=== PATIENT | female | born 1985 | race Asian ===

== ENCOUNTER 2017-01-16 12:27 | Emergency (ER) | payer MEDICAID, OTHER ==
[~2017-01-16] VITALS: Ht 165.1 cm; Wt 80.0 kg
[~2017-01-16 12:27] MED LIST: CIPR-278 PO; DSS100 PO; METR500 PO; PANT40TA25 PO; RISP3 PO
[2017-01-16 13:18] VITALS: BP 115/80
== END 2017-01-16 14:37 | disposition home or self-care (01) ==
LOC: EMS 12:30
DX: S93.402A Sprain of unspecified ligament of left ankle, initial encounter (principal); F17.210 Nicotine dependence, cigarettes, uncomplicated; Z88.6 Allergy status to analgesic agent; Z88.5 Allergy status to narcotic agent; X58.XXXA Exposure to other specified factors, initial encounter; Y93.89 Activity, other specified; Y92.811 Bus as the place of occurrence of the external cause; Y99.8 Other external cause status
CPT/HCPCS: 99284

== ENCOUNTER 2017-08-07 16:51 | Inpatient (IN) | payer MEDICAID, OTHER ==
[~2017-08-07] VITALS: Ht 162.6 cm; Wt 68.4 kg
[2017-08-07] MEDS ORDERED: HYDR-3110 PO (17:20)
[2017-08-07] MEDS ORDERED: HALOPERIDOL 5 MG TABLET PO ONE (18:15)
[2017-08-07] MEDS ORDERED: LORazepam 2 MG TABLET PO ONE (18:15)
[2017-08-07 19:12] LABS: BASOPHILS % (AUTO) 0.7 % (0.0-2.0); EOSINOPHILS % (AUTO) 3.8 % (1.0-6.0); HEMOGLOBIN 14.6 g/dL (12.0-16.0); LYMPHOCYTES # (AUTO) 1.9 K/uL (1.0-4.8); LYMPHOCYTES % (AUTO) 24.2 % (22.0-44.0); MEAN CORPUSCULAR HEMOGLOBIN 30.9 pg (26.0-34.0); MEAN CORPUSCULAR VOLUME 91 fL (80-100); MONOCYTES # (AUTO) 0.4 K/uL (0.1-1.0); MONOCYTES % (AUTO) 5.4 % (2.0-9.0); NEUTROPHILS # (AUTO) 5.1 K/uL (1.8-7.7); NEUTROPHILS % (AUTO) 65.9 % (40.0-70.0); PLATELET COUNT (AUTO) 292 K/uL (150-450); RED BLOOD CELL COUNT(AUTO) 4.74 MIL/uL (4.00-5.20); RED CELL DISTRIBUTION WIDTH 12.7 % (11.5-14.5); WHITE BLOOD COUNT (AUTO) 7.8 K/uL (4.5-11.0)
[2017-08-07 19:21] LABS: ANION GAP 11 mmol/L (8-16); CALCIUM, TOTAL 9.3 mg/dL (8.8-10.5); CARBON DIOXIDE 23 mmol/L (22-29); CHLORIDE 104 mmol/L (98-107); CREATININE 0.73 mg/dL (0.60-1.30); GLOMERULAR FILTR. RATE CALC > 60 mL/min (>60); POTASSIUM 3.9 mmol/L (3.5-5.1); SODIUM SERUM 138 mmol/L (136-145); UREA NITROGEN, BLOOD 11 mg/dL (7-18)
[2017-08-07 19:27] LABS: ALANINE AMINOTRANSFERASE 26 U/L (12-78); ASPARTATE AMINOTRANSFERASE 15 U/L (15-37); BILIRUBIN,TOTAL 0.2 mg/dL (0.1-1.0); TOTAL PROTEIN, SERUM 8.4 g/dL (6.4-8.2)
[2017-08-07] MEDS: NICOTINE 14 MG/24 HOUR PATCH TD SCH (19:54)
[2017-08-07 20:08] VITALS: BP 147/81
[2017-08-07] MEDS: ZOLPIDEM TARTRATE 10 MG TABLET PO PRN (20:40)
[2017-08-07] MEDS ORDERED: INFLUENZA VIRUS VACCINE QVS 2017-18 (3YR+)/PF 60 MCG/0.5 ML SYRINGE IM ONE (21:30)
[2017-08-07 23:24] LABS: APPEARANCE,URINE TURBID (CLEAR); GLUCOSE, URINE (UA) NEGATIVE (NEGATIVE); KETONES,URINE NEGATIVE (NEGATIVE); LEUKOCYTE ESTERASE ,URINE NEGATIVE (NEGATIVE); OCCULT BLOOD,URINE NEGATIVE (NEGATIVE); PH,URINE 7.5 (5.0-8.0); PROTEIN,URINE NEGATIVE (NEGATIVE)
[2017-08-07 23:27] LABS: ADD UA MICROSCOPIC NO
[2017-08-08] MEDS: LORazepam 2 MG TABLET PO PRN ×3 (05:33→21:07)
[2017-08-08 05:48] VITALS: BP 115/83
[2017-08-08] MEDS: HALOPERIDOL 5 MG TABLET PO PRN (05:53)
[2017-08-08 07:06] LABS: CHOL/HDL RATIO 2.2 (3.9-5.7)
[2017-08-08] MEDS ORDERED: MAG HYDROX/AL HYDROX/SIMETH ES 30 ML SUSPENSION UDCUP PO PRN (07:30)
[2017-08-08] MEDS ORDERED: ONDANSETRON HCL 4 MG TABLET PO PRN (07:30)
[2017-08-08] MEDS ORDERED: BACITRACIN 28.4 GM OINTMENT TP PRN (07:30)
[2017-08-08] MEDS ORDERED: MAGNESIUM HYDROXIDE SUSPENSION 30 ML UDCUP PO PRN (07:30)
[2017-08-08] MEDS ORDERED: CloNIDine HCL 0.1 MG TABLET PO PRN (07:30)
[2017-08-08] MEDS ORDERED: PETROLATUM,WHITE 71 GM JELLY TP PRN (07:30)
[2017-08-08] MEDS ORDERED: LOPERAMIDE HCL 2 MG CAPSULE PO PRN (07:30)
[2017-08-08] MEDS ORDERED: ALBUTEROL SULFATE HFA 90 MCG/PUFF 8 GM INHALER IH PRN (07:30)
[2017-08-08] MEDS ORDERED: BENZOCAINE/MENTHOL LOZENGE [8 LOZENGES/PACKET] MM PRN (07:45)
[2017-08-08] MEDS: DiphenhydrAMINE HCL 25 MG CAPSULE PO PRN (08:53)
[2017-08-08] MEDS: NICOTINE 14 MG/24 HOUR PATCH TD SCH (08:56)
[2017-08-08 10:07] VITALS: BP 126/74
[2017-08-08] MEDS: NICOTINE 21 MG/24 HOUR PATCH TD SCH (11:33)
[2017-08-08] MEDS: HALOPERIDOL 5 MG TABLET PO SCH ×2 (11:33→20:56)
[2017-08-08 17:40] VITALS: BP 117/71
[2017-08-09] MEDS: LORazepam 2 MG TABLET PO PRN ×2 (07:12→14:27)
[2017-08-09 08:05] VITALS: BP 122/71
[2017-08-09] MEDS: HALOPERIDOL 5 MG TABLET PO SCH ×2 (09:11→21:02)
[2017-08-09] MEDS: NICOTINE 21 MG/24 HOUR PATCH TD SCH (09:13)
[2017-08-09] MEDS: DiphenhydrAMINE HCL 25 MG CAPSULE PO PRN (11:05)
[2017-08-09] MEDS: HALOPERIDOL 5 MG TABLET PO PRN (14:28)
[2017-08-09 16:24] VITALS: BP 121/86
[2017-08-09] MEDS: ZOLPIDEM TARTRATE 10 MG TABLET PO PRN (21:02)
[2017-08-10] MEDS: LORazepam 2 MG TABLET PO PRN ×3 (06:24→16:11)
[2017-08-10 06:26] VITALS: BP 112/83
[2017-08-10] MEDS: DiphenhydrAMINE HCL 25 MG CAPSULE PO PRN (07:48)
[2017-08-10] MEDS: HALOPERIDOL 5 MG TABLET PO PRN ×2 (07:49→16:11)
[2017-08-10 08:00] VITALS: BP 118/73
[2017-08-10] MEDS: HALOPERIDOL 5 MG TABLET PO SCH ×2 (10:00→21:00)
[2017-08-10] MEDS: NICOTINE 21 MG/24 HOUR PATCH TD SCH (10:02)
[2017-08-10 16:15] VITALS: BP 135/82
[2017-08-10] MEDS: ACETAMINOPHEN 325 MG TABLET PO PRN (16:54)
[2017-08-10 17:00] VITALS: BP 132/68
[2017-08-11] MEDS: HALOPERIDOL 5 MG TABLET PO PRN ×2 (04:27→12:41)
[2017-08-11] MEDS: LORazepam 2 MG TABLET PO PRN ×3 (04:28→19:23)
[2017-08-11 04:31] VITALS: BP 118/80
[2017-08-11] MEDS: HALOPERIDOL 5 MG TABLET PO SCH ×3 (09:12→21:10)
[2017-08-11] MEDS: NICOTINE 21 MG/24 HOUR PATCH TD SCH (09:13)
[2017-08-11 09:29] VITALS: BP 109/72
[2017-08-11] MEDS: DiphenhydrAMINE HCL 25 MG CAPSULE PO PRN (15:15)
[2017-08-11] MEDS: ACETAMINOPHEN 325 MG TABLET PO PRN (16:00)
[2017-08-11 16:03] VITALS: BP 112/73
[2017-08-12 00:15] VITALS: BP 114/73
[2017-08-12] MEDS: ZOLPIDEM TARTRATE 10 MG TABLET PO PRN ×2 (00:16→22:11)
[2017-08-12] MEDS: LORazepam 2 MG TABLET PO PRN ×3 (07:00→15:37)
[2017-08-12 08:52] VITALS: BP 126/84
[2017-08-12] MEDS: NICOTINE 21 MG/24 HOUR PATCH TD SCH (08:59)
[2017-08-12] MEDS: HALOPERIDOL 5 MG TABLET PO SCH (08:59)
[2017-08-12] MEDS: HALOPERIDOL 5 MG TABLET PO PRN (16:48)
[2017-08-12] MEDS: HALOPERIDOL 10 MG TABLET PO SCH (20:01)
[2017-08-12 21:38] VITALS: BP 112/78
[2017-08-13 08:05] VITALS: BP 118/78
[2017-08-13] MEDS: HALOPERIDOL 10 MG TABLET PO SCH ×2 (08:11→22:38)
[2017-08-13] MEDS: LORazepam 2 MG TABLET PO PRN ×2 (08:12→15:01)
[2017-08-13] MEDS: NICOTINE 21 MG/24 HOUR PATCH TD SCH (08:13)
[2017-08-13] MEDS: DiphenhydrAMINE HCL 25 MG CAPSULE PO PRN ×2 (08:13→16:34)
[2017-08-13 12:05] LABS: ANION GAP 6 mmol/L (8-16); CALCIUM, TOTAL 8.9 mg/dL (8.8-10.5); CARBON DIOXIDE 30 mmol/L (22-29); CHLORIDE 103 mmol/L (98-107); CREATININE 0.71 mg/dL (0.60-1.30); GLOMERULAR FILTR. RATE CALC > 60 mL/min (>60); POTASSIUM 4.2 mmol/L (3.5-5.1); SODIUM SERUM 139 mmol/L (136-145); UREA NITROGEN, BLOOD 8 mg/dL (7-18)
[2017-08-13 12:07] LABS: HEMOGLOBIN A1C 5.6 % (4.5-6.2)
[2017-08-13] MEDS: HALOPERIDOL 5 MG TABLET PO PRN (16:12)
[2017-08-13 16:38] VITALS: BP 107/60
[2017-08-13] MEDS: BENZTROPINE MESYLATE 1 MG TABLET PO SCH (22:38)
[2017-08-14 08:35] VITALS: BP 104/74
[2017-08-14] MEDS: HALOPERIDOL 10 MG TABLET PO SCH ×2 (08:52→20:08)
[2017-08-14] MEDS: NICOTINE 21 MG/24 HOUR PATCH TD SCH (08:52)
[2017-08-14] MEDS: BENZTROPINE MESYLATE 1 MG TABLET PO SCH ×2 (08:52→20:08)
[2017-08-14] MEDS: LORazepam 2 MG TABLET PO PRN (12:40)
[2017-08-14 16:37] VITALS: BP 108/71
[2017-08-14] MEDS: ACETAMINOPHEN 325 MG TABLET PO PRN (16:37)
[2017-08-14 16:42] VITALS: BP 108/71
[2017-08-14 19:52] VITALS: BP 100/66
[2017-08-14] MEDS: IBUPROFEN 600 MG TABLET PO PRN (19:52)
[2017-08-14] MEDS: ZOLPIDEM TARTRATE 10 MG TABLET PO PRN (20:08)
[2017-08-14 20:52] VITALS: BP 111/72
[2017-08-15 04:25] VITALS: BP 112/70
[2017-08-15 05:30] VITALS: BP 112/70
[2017-08-15] MEDS: IBUPROFEN 600 MG TABLET PO PRN (05:35)
[2017-08-15] MEDS: LORazepam 2 MG TABLET PO PRN (08:27)
[2017-08-15] MEDS: BENZTROPINE MESYLATE 1 MG TABLET PO SCH (08:28)
[2017-08-15] MEDS: HALOPERIDOL 10 MG TABLET PO SCH (08:28)
[2017-08-15] MEDS: NICOTINE 21 MG/24 HOUR PATCH TD SCH (08:31)
[2017-08-15] MEDS: DiphenhydrAMINE HCL 25 MG CAPSULE PO PRN (09:10)
[2017-08-15] MEDS ORDERED: HALO10 PO (10:27)
[2017-08-15] MEDS ORDERED: BENZ1TAB10 PO (10:27)
[2017-08-15 12:19] LABS: APPEARANCE,URINE CLEAR (CLEAR); GLUCOSE, URINE (UA) NEGATIVE (NEGATIVE); KETONES,URINE NEGATIVE (NEGATIVE); LEUKOCYTE ESTERASE ,URINE NEGATIVE (NEGATIVE); OCCULT BLOOD,URINE NEGATIVE (NEGATIVE); PROTEIN,URINE NEGATIVE (NEGATIVE)
[2017-08-15 12:31] LABS: ADD UA MICROSCOPIC NO
[2017-08-15 13:03] VITALS: BP 124/78
== END 2017-08-15 14:30 | disposition home or self-care (01) | DRG 750 ==
LOC: EMS 16:54 → MERGE 18:25 → 3EI 18:25
PROC: 3E0234Z Introduction of Serum, Toxoid and Vaccine into Muscle, Percutaneous Approach (ICD-10-PCS; principal; 2017-08-09)
DX: F20.0 Paranoid schizophrenia (principal); R56.9 Unspecified convulsions; R45.851 Suicidal ideations; F17.200 Nicotine dependence, unspecified, uncomplicated; Z23 Encounter for immunization; G47.00 Insomnia, unspecified; K59.00 Constipation, unspecified; N80.9 Endometriosis, unspecified; N83.209 Unspecified ovarian cyst, unspecified side; N94.6 Dysmenorrhea, unspecified; Z91.5 Personal history of self-harm; R45.87 Impulsiveness; Z71.6 Tobacco abuse counseling; Z56.0 Unemployment, unspecified
CPT/HCPCS: 80307; 81025; 83036; 87081; 90471; 99285

== ENCOUNTER 2017-08-16 20:55 | Emergency (ER) | payer OTHER ==
[~2017-08-16] VITALS: Ht 162.6 cm; Wt 69.1 kg
[~2017-08-16 20:55] MED LIST changes: +BENZ1TAB10 PO; -CIPR-278 PO; -DSS100 PO; +HALO10 PO; -METR500 PO; -PANT40TA25 PO; -RISP3 PO
[2017-08-16] MEDS ORDERED: LORazepam 2 MG TABLET PO ONE (21:30)
[2017-08-16] MEDS ORDERED: HALOPERIDOL 5 MG TABLET PO ONE (21:30)
[2017-08-16 21:47] LABS: ANION GAP 10 mmol/L (8-16); CALCIUM, TOTAL 9.3 mg/dL (8.8-10.5); CARBON DIOXIDE 25 mmol/L (22-29); CHLORIDE 103 mmol/L (98-107); CREATININE 0.75 mg/dL (0.60-1.30); GLOMERULAR FILTR. RATE CALC > 60 mL/min (>60); POTASSIUM 4.1 mmol/L (3.5-5.1); SODIUM SERUM 138 mmol/L (136-145); UREA NITROGEN, BLOOD 12 mg/dL (7-18)
[2017-08-16 21:53] LABS: ALANINE AMINOTRANSFERASE 19 U/L (12-78); ALBUMIN 3.8 g/dL (3.4-5.0); ASPARTATE AMINOTRANSFERASE 14 U/L (15-37); BILIRUBIN,TOTAL 0.1 mg/dL (0.1-1.0); TOTAL PROTEIN, SERUM 7.8 g/dL (6.4-8.2)
[2017-08-16 21:56] LABS: BASOPHILS % (AUTO) 0.6 % (0.0-2.0); HEMOGLOBIN 13.9 g/dL (12.0-16.0); LYMPHOCYTES # (AUTO) 1.9 K/uL (1.0-4.8); LYMPHOCYTES % (AUTO) 23.3 % (22.0-44.0); MEAN CORPUSCULAR HEMOGLOBIN 31.3 pg (26.0-34.0); MEAN CORPUSCULAR HGB CONC 34.7 G/dL (31.0-37.0); MEAN CORPUSCULAR VOLUME 90 fL (80-100); MONOCYTES # (AUTO) 0.4 K/uL (0.1-1.0); MONOCYTES % (AUTO) 5.2 % (2.0-9.0); NEUTROPHILS # (AUTO) 5.3 K/uL (1.8-7.7); NEUTROPHILS % (AUTO) 65.9 % (40.0-70.0); PLATELET COUNT (AUTO) 244 K/uL (150-450); RED BLOOD CELL COUNT(AUTO) 4.43 MIL/uL (4.00-5.20); RED CELL DISTRIBUTION WIDTH 12.4 % (11.5-14.5)
[2017-08-17] VITALS: BP 119/75
== END 2017-08-17 00:08 | disposition home or self-care (01) ==
LOC: EMS 20:57
DX: F25.9 Schizoaffective disorder, unspecified (principal); F31.9 Bipolar disorder, unspecified; F17.210 Nicotine dependence, cigarettes, uncomplicated; Z88.5 Allergy status to narcotic agent; Z88.8 Allergy status to other drugs, medicaments and biological substances
CPT/HCPCS: 36415; 80053; 80307; 84703; 85025; 99285; G0480

== ENCOUNTER 2018-07-08 13:35 | Emergency (ER) | payer MEDICAID, OTHER ==
[~2018-07-08] VITALS: Ht 160 cm; Wt 75.0 kg
[~2018-07-08 13:35] MED LIST changes: -BENZ1TAB10 PO; +CIPR-278 PO; -HALO10 PO; +OLAN10TA3 PO
[2018-07-08 13:37] VITALS: BP 117/79
[2018-07-08] MEDS ORDERED: CLIN300C3 PO (14:00)
[2018-07-08] MEDS ORDERED: ARIP5TAB8 PO (14:00)
[2018-07-08] MEDS ORDERED: IBUP-2071 PO (14:00)
[2018-07-08] MEDS ORDERED: HYDR-4031 PO (14:00)
[2018-07-08] MEDS ORDERED: OLAN5TAB2 PO (14:00)
[2018-07-08 14:21] LABS: EOSINOPHILS % (AUTO) 6.7 % (1.0-6.0); HEMATOCRIT 40.7 % (36-46); HEMOGLOBIN 14.2 g/dL (12.0-16.0); LYMPHOCYTES # (AUTO) 1.5 K/uL (1.0-4.8); LYMPHOCYTES % (AUTO) 25.1 % (22.0-44.0); MEAN CORPUSCULAR HEMOGLOBIN 30.5 pg (26.0-34.0); MEAN CORPUSCULAR HGB CONC 34.8 G/dL (31.0-37.0); MEAN CORPUSCULAR VOLUME 88 fL (80-100); MONOCYTES # (AUTO) 0.3 K/uL (0.1-1.0); MONOCYTES % (AUTO) 5.1 % (2.0-9.0); NEUTROPHILS # (AUTO) 3.7 K/uL (1.8-7.7); NEUTROPHILS % (AUTO) 62.1 % (40.0-70.0); PLATELET COUNT (AUTO) 261 K/uL (150-450); RED BLOOD CELL COUNT(AUTO) 4.64 MIL/uL (4.00-5.20)
[2018-07-08 14:27] LABS: ANION GAP 11 mmol/L (8-16); CALCIUM, TOTAL 9.1 mg/dL (8.8-10.5); CARBON DIOXIDE 23 mmol/L (22-29); CHLORIDE 106 mmol/L (98-107); CREATININE 0.77 mg/dL (0.60-1.30); GLOMERULAR FILTR. RATE CALC > 60 mL/min (>60); GLUCOSE,RANDOM 104 mg/dL (70-110); POTASSIUM 3.7 mmol/L (3.5-5.1); SODIUM SERUM 140 mmol/L (136-145); UREA NITROGEN, BLOOD 11 mg/dL (7-18)
[2018-07-08] MEDS ORDERED: LORazepam 2 MG/ML VIAL IM ONE (14:30)
[2018-07-08] MEDS ORDERED: HALOPERIDOL LACTATE 5 MG/ML VIAL IM ONE (14:30)
[2018-07-08 14:33] LABS: ALANINE AMINOTRANSFERASE 59 U/L (12-78); ALBUMIN 3.6 g/dL (3.4-5.0); ALKALINE PHOSPHATASE 90 U/L (46-116); ASPARTATE AMINOTRANSFERASE 24 U/L (15-37); BILIRUBIN,TOTAL 0.2 mg/dL (0.1-1.0); TOTAL PROTEIN, SERUM 7.6 g/dL (6.4-8.2)
[2018-07-08 15:30] LABS: AMPHET/METH SCREEN,URINE NEGATIVE (NEGATIVE); BARBITURATE SCREEN, URINE NEGATIVE (NEGATIVE); BENZODIAZEPINES SCREEN,URINE NEGATIVE (NEGATIVE); CANNABINOID SCREEN,URINE NEGATIVE (NEGATIVE); COCAINE SCREEN,URINE NEGATIVE (NEGATIVE); METHADONE SCREEN, URINE NEGATIVE (NEGATIVE); OPIATE SCREEN,URINE NEGATIVE (NEGATIVE); PHENCYCLIDINE SCREEN,URINE NEGATIVE (NEGATIVE)
== END 2018-07-08 16:17 | disposition home or self-care (01) ==
LOC: EMS 13:36
DX: F20.0 Paranoid schizophrenia (principal); F41.9 Anxiety disorder, unspecified; L27.2 Dermatitis due to ingested food; R45.851 Suicidal ideations; F31.9 Bipolar disorder, unspecified; N80.9 Endometriosis, unspecified; F11.20 Opioid dependence, uncomplicated; F17.210 Nicotine dependence, cigarettes, uncomplicated; Z86.718 Personal history of other venous thrombosis and embolism; Z88.6 Allergy status to analgesic agent; Z79.899 Other long term (current) drug therapy; Z98.890 Other specified postprocedural states; Z71.6 Tobacco abuse counseling
CPT/HCPCS: 36415; 80053; 80307; 84703; 85025; 96372; 99284; 99406; G0480; J1630; J2060

== ENCOUNTER 2022-01-18 16:23 | Emergency (ER) | payer MEDICAID, OTHER ==
[~2022-01-18] VITALS: Ht 165.1 cm; Wt 77.3 kg
[~2022-01-18 16:23] MED LIST changes: +ARIP5TAB37 PO; -CIPR-278 PO; +CLIN300C3 PO; +HYDR-4808 PO; +IBUP-2071 PO; -OLAN10TA3 PO; +OLAN5TAB52 PO
[2022-01-18] MEDS ORDERED: LORazepam 1 MG TABLET PO ONE (19:00)
[2022-01-18 19:30] VITALS: BP 115/84
== END 2022-01-18 20:00 | disposition home or self-care (01) ==
LOC: EMS 16:25
DX: R45.851 Suicidal ideations (principal); F41.9 Anxiety disorder, unspecified; F31.9 Bipolar disorder, unspecified; F17.210 Nicotine dependence, cigarettes, uncomplicated; Z88.5 Allergy status to narcotic agent; Z88.6 Allergy status to analgesic agent
CPT/HCPCS: 99284; Z7502; Z7610

== ENCOUNTER 2022-02-27 16:46 | Emergency (ER) | payer OTHER ==
[~2022-02-27] VITALS: Ht 165.1 cm; Wt 78.2 kg
[~2022-02-27 16:46] MED LIST changes: -CLIN300C3 PO; +CLIN300C58 PO
[2022-02-27 18:07] LABS: BASOPHILS % (AUTO) 0.9 % (0.0-2.0); EOSINOPHILS % (AUTO) 1.2 % (1.0-6.0); HEMATOCRIT 40.9 % (36-46); HEMOGLOBIN 13.8 g/dL (12.0-16.0); LYMPHOCYTES % (AUTO) 31.5 % (22.0-44.0); MEAN CORPUSCULAR HGB CONC 33.7 G/dL (31.0-37.0); MEAN CORPUSCULAR VOLUME 86 fL (80-100); MONOCYTES # (AUTO) 0.3 K/uL (0.1-1.0); MONOCYTES % (AUTO) 4.4 % (2.0-9.0); PLATELET COUNT (AUTO) 259 K/uL (150-450); RED BLOOD CELL COUNT(AUTO) 4.77 MIL/uL (4.00-5.20)
[2022-02-27 18:14] VITALS: BP 123/74
[2022-02-27 18:17] LABS: ANION GAP 13 mmol/L (8-16); CALCIUM, TOTAL 9.3 mg/dL (8.8-10.5); CARBON DIOXIDE 23 mmol/L (22-29); CHLORIDE 107 mmol/L (98-107); CREATININE 0.98 mg/dL (0.60-1.30); GLOMERULAR FILTR. RATE CALC > 60 mL/min (>60); GLUCOSE,RANDOM 92 mg/dL (70-110); POTASSIUM 3.4 mmol/L (3.5-5.1); SODIUM SERUM 143 mmol/L (136-145); UREA NITROGEN, BLOOD 13 mg/dL (7-18)
[2022-02-27] MEDS ORDERED: [UNRECOGNIZED DRUG - CODE] PO (18:21)
[2022-02-27] MEDS ORDERED: CLOZ100T32 PO (18:21)
[2022-02-27] MEDS ORDERED: TOPI25 PO (18:21)
[2022-02-27 18:23] LABS: ALANINE AMINOTRANSFERASE 22 U/L (12-78); ALBUMIN 3.9 g/dL (3.4-5.0); ALKALINE PHOSPHATASE 117 U/L (46-116); ASPARTATE AMINOTRANSFERASE 19 U/L (15-37); BILIRUBIN,TOTAL 0.3 mg/dL (0.1-1.0); TOTAL PROTEIN, SERUM 8.1 g/dL (6.4-8.2)
[2022-02-27] MEDS ORDERED: LORazepam 1 MG TABLET PO ONE (19:00)
[2022-02-27 19:15] LABS: AMPHET/METH SCREEN,URINE NEGATIVE (NEGATIVE); BARBITURATE SCREEN, URINE NEGATIVE (NEGATIVE); BENZODIAZEPINES SCREEN,URINE NEGATIVE (NEGATIVE); CANNABINOID SCREEN,URINE NEGATIVE (NEGATIVE); COCAINE SCREEN,URINE NEGATIVE (NEGATIVE); METHADONE SCREEN, URINE NEGATIVE (NEGATIVE); OPIATE SCREEN,URINE NEGATIVE (NEGATIVE)
[2022-02-27 19:16] LABS: PHENCYCLIDINE SCREEN,URINE NEGATIVE (NEGATIVE)
[2022-02-27 20:09] LABS: COVID AG,FIA SOURCE NASOPHARYNGEAL
[2022-02-27] MEDS ORDERED: CloZAPine 100 MG TABLET PO ONE (20:30)
== END 2022-02-27 21:04 | disposition home or self-care (01) ==
LOC: EMS 16:52
DX: F31.9 Bipolar disorder, unspecified (principal); F41.9 Anxiety disorder, unspecified; N80.9 Endometriosis, unspecified; F11.20 Opioid dependence, uncomplicated; F17.210 Nicotine dependence, cigarettes, uncomplicated; Z87.42 Personal history of other diseases of the female genital tract; Z98.890 Other specified postprocedural states; Z88.8 Allergy status to other drugs, medicaments and biological substances; Z20.822 Contact with and (suspected) exposure to COVID-19
CPT/HCPCS: 36415; 80053; 80307; 85025; 87426; 99285; G0480

== ENCOUNTER 2022-03-05 15:01 | Inpatient (IN) | payer MEDICAID, OTHER ==
[~2022-03-05] VITALS: Ht 165.1 cm; Wt 72.0 kg
[~2022-03-05 15:01] MED LIST changes: +CHOL200059 PO; -CLIN300C58 PO; +CLOZ100T32 PO; +TOPI25 PO
[2022-03-05] MEDS ORDERED: QUEtiapine FUMARATE 100 MG TABLET PO PRN (17:30)
[2022-03-05 17:42] LABS: BASOPHILS % (AUTO) 0.9 % (0.0-2.0); EOSINOPHILS % (AUTO) 1.3 % (1.0-6.0); HEMATOCRIT 40.8 % (36-46); HEMOGLOBIN 13.9 g/dL (12.0-16.0); LYMPHOCYTES # (AUTO) 2.1 K/uL (1.0-4.8); MEAN CORPUSCULAR HEMOGLOBIN 29.3 pg (26.0-34.0); MEAN CORPUSCULAR VOLUME 86 fL (80-100); MONOCYTES # (AUTO) 0.3 K/uL (0.1-1.0); MONOCYTES % (AUTO) 3.6 % (2.0-9.0); NEUTROPHILS # (AUTO) 5.5 K/uL (1.8-7.7); NEUTROPHILS % (AUTO) 68.2 % (40.0-70.0); PLATELET COUNT (AUTO) 257 K/uL (150-450); RED BLOOD CELL COUNT(AUTO) 4.74 MIL/uL (4.00-5.20); RED CELL DISTRIBUTION WIDTH 13.5 % (11.5-14.5)
[2022-03-05] MEDS ORDERED: LORazepam 2 MG TABLET PO ONE (17:45)
[2022-03-05] MEDS ORDERED: OLANZapine 5 MG TABLET PO ONE (17:45)
[2022-03-05 17:51] LABS: ANION GAP 9 mmol/L (8-16); CALCIUM, TOTAL 9.4 mg/dL (8.8-10.5); CARBON DIOXIDE 25 mmol/L (22-29); CHLORIDE 108 mmol/L (98-107); CREATININE 0.99 mg/dL (0.60-1.30); GLOMERULAR FILTR. RATE CALC > 60 mL/min (>60); GLUCOSE,RANDOM 113 mg/dL (70-110); POTASSIUM 3.3 mmol/L (3.5-5.1); SODIUM SERUM 142 mmol/L (136-145); UREA NITROGEN, BLOOD 11 mg/dL (7-18)
[2022-03-05 17:53] LABS: COVID AG,FIA SOURCE NASAL SWAB
[2022-03-05 17:55] LABS: APPEARANCE,URINE TURBID (CLEAR); BILIRUBIN,URINE NEGATIVE (NEGATIVE); GLUCOSE, URINE (UA) NEGATIVE (NEGATIVE); KETONES,URINE NEGATIVE (NEGATIVE); LEUKOCYTE ESTERASE ,URINE NEGATIVE (NEGATIVE); NITRATE,URINE NEGATIVE (NEGATIVE); OCCULT BLOOD,URINE NEGATIVE (NEGATIVE); PH,URINE 7.5 (5.0-8.0); PROTEIN,URINE NEGATIVE (NEGATIVE); SPECIFIC GRAVITIY, URINE 1.013 (1.003-1.030); UROBILINOGEN,URINE <=1.0 mg/dL (<=1.0)
[2022-03-05 18:01] LABS: AMPHET/METH SCREEN,URINE NEGATIVE (NEGATIVE); BARBITURATE SCREEN, URINE NEGATIVE (NEGATIVE); BENZODIAZEPINES SCREEN,URINE NEGATIVE (NEGATIVE); CANNABINOID SCREEN,URINE NEGATIVE (NEGATIVE); COCAINE SCREEN,URINE NEGATIVE (NEGATIVE); METHADONE SCREEN, URINE NEGATIVE (NEGATIVE); OPIATE SCREEN,URINE NEGATIVE (NEGATIVE)
[2022-03-05 18:02] LABS: ALANINE AMINOTRANSFERASE 21 U/L (12-78); ALKALINE PHOSPHATASE 113 U/L (46-116); ASPARTATE AMINOTRANSFERASE 14 U/L (15-37); BILIRUBIN,TOTAL 0.3 mg/dL (0.1-1.0); HCG,QUANTITATIVE < 1 mIU/mL (0-6); TOTAL PROTEIN, SERUM 8.4 g/dL (6.4-8.2)
[2022-03-05 18:02] LABS: PHENCYCLIDINE SCREEN,URINE NEGATIVE (NEGATIVE)
[2022-03-05] MEDS ORDERED: POTASSIUM CHLORIDE 20 MEQ ER TABLET PO ONE (18:15)
[2022-03-05] MEDS: LORazepam 2 MG TABLET PO PRN (19:51)
[2022-03-06] MEDS: LORazepam 2 MG TABLET PO PRN ×2 (11:15→16:51)
[2022-03-06 11:30] VITALS: BP 110/81
[2022-03-06 16:26] VITALS: BP 114/80
[2022-03-06] MEDS: NICOTINE 21 MG/24 HOUR PATCH TD SCH (16:57)
[2022-03-06] MEDS: CloZAPine 100 MG TABLET PO SCH (20:29)
[2022-03-07 00:22] VITALS: BP 116/82
[2022-03-07] MEDS: ZOLPIDEM TARTRATE 10 MG TABLET PO PRN (01:16)
[2022-03-07 07:57] LABS: HEMOGLOBIN A1C 5.5 % (3.8-5.6)
[2022-03-07 08:06] LABS: CHOL/HDL RATIO 2.5 (3.9-5.7); FREE T4 (FREE THYROXINE) 1.19 ng/dL (0.76-1.46); THYROID STIMULATING HORMONE 1.01 uIU/mL (0.36-3.74)
[2022-03-07 08:23] VITALS: BP 107/70
[2022-03-07] MEDS: CHOLECALCIFEROL (VIT D3) 1,000 UNITS [25 MCG] TABLET PO SCH (09:23)
[2022-03-07] MEDS: TOPIRAMATE 25 MG TABLET PO SCH (09:23)
[2022-03-07] MEDS: NICOTINE 21 MG/24 HOUR PATCH TD SCH (09:23)
[2022-03-07] MEDS: ESCITALOPRAM OXALATE 10 MG TABLET PO SCH (09:27)
[2022-03-07] MEDS: LORazepam 2 MG TABLET PO PRN ×2 (11:37→19:59)
[2022-03-07] MEDS ORDERED: ACETAMINOPHEN 325 MG TABLET PO PRN (13:15)
[2022-03-07 16:19] VITALS: BP 117/85
[2022-03-07] MEDS ORDERED: ONDANSETRON HCL 4 MG TABLET PO PRN (18:45)
[2022-03-07] MEDS: CloZAPine 100 MG TABLET PO SCH (20:28)
[2022-03-08 07:17] LABS: POTASSIUM 4.4 mmol/L (3.5-5.1)
[2022-03-08 08:12] VITALS: BP 118/61
[2022-03-08] MEDS: TOPIRAMATE 25 MG TABLET PO SCH (09:26)
[2022-03-08] MEDS: CHOLECALCIFEROL (VIT D3) 1,000 UNITS [25 MCG] TABLET PO SCH (09:28)
[2022-03-08] MEDS: ESCITALOPRAM OXALATE 10 MG TABLET PO SCH (09:28)
[2022-03-08] MEDS: NICOTINE 21 MG/24 HOUR PATCH TD SCH (09:29)
[2022-03-08] MEDS: LORazepam 2 MG TABLET PO PRN ×2 (09:47→19:06)
[2022-03-08 16:03] VITALS: BP 111/67
[2022-03-08] MEDS: CloZAPine 100 MG TABLET PO SCH (20:07)
[2022-03-09 02:09] VITALS: BP 113/65
[2022-03-09] MEDS: TOPIRAMATE 25 MG TABLET PO SCH (09:05)
[2022-03-09] MEDS: ESCITALOPRAM OXALATE 10 MG TABLET PO SCH (09:05)
[2022-03-09] MEDS: NICOTINE 21 MG/24 HOUR PATCH TD SCH (09:05)
[2022-03-09] MEDS: CHOLECALCIFEROL (VIT D3) 1,000 UNITS [25 MCG] TABLET PO SCH (09:06)
[2022-03-09 09:27] VITALS: BP 106/84
[2022-03-09] MEDS: LORazepam 2 MG TABLET PO PRN (12:10)
[2022-03-09 16:16] VITALS: BP 102/67
[2022-03-09] MEDS: CloZAPine 100 MG TABLET PO SCH (20:33)
[2022-03-09] MEDS: ZOLPIDEM TARTRATE 10 MG TABLET PO PRN (22:57)
[2022-03-10 01:45] VITALS: BP 106/70
[2022-03-10 09:00] VITALS: BP 98/60
[2022-03-10] MEDS: ESCITALOPRAM OXALATE 10 MG TABLET PO SCH (09:02)
[2022-03-10] MEDS: NICOTINE 21 MG/24 HOUR PATCH TD SCH (09:02)
[2022-03-10] MEDS: CHOLECALCIFEROL (VIT D3) 1,000 UNITS [25 MCG] TABLET PO SCH (09:02)
[2022-03-10] MEDS: TOPIRAMATE 25 MG TABLET PO SCH (09:02)
[2022-03-10] MEDS ORDERED: CLOZ100T32 PO (13:52)
[2022-03-10] MEDS ORDERED: ESCI10 PO (13:52)
[2022-03-10] MEDS ORDERED: TOPI25 PO (13:52)
[2022-03-10] MEDS: LORazepam 2 MG TABLET PO PRN (14:04)
[2022-03-10 16:10] VITALS: BP 119/68
== END 2022-03-10 16:15 | disposition home or self-care (01) | DRG 750 ==
LOC: EMS 15:04 → B2S 03-06 05:42
PROVIDERS: ADMIT Psychiatry & Neurology Psychiatry; ATTEND Psychiatry & Neurology Psychiatry
DX: F25.1 Schizoaffective disorder, depressive type (principal); R45.850 Homicidal ideations; E55.9 Vitamin D deficiency, unspecified; Z20.822 Contact with and (suspected) exposure to COVID-19; E87.6 Hypokalemia; F11.20 Opioid dependence, uncomplicated; F17.200 Nicotine dependence, unspecified, uncomplicated; F31.9 Bipolar disorder, unspecified; F41.9 Anxiety disorder, unspecified; Z79.899 Other long term (current) drug therapy; Z71.6 Tobacco abuse counseling; Z91.51 Personal history of suicidal behavior; Z91.52 Personal history of nonsuicidal self-harm
CPT/HCPCS: 80053; 80061; 81003; 83036; 84132; 84439; 84443; 84702; 85025; 99285; G0480

== ENCOUNTER 2022-03-25 20:26 | Inpatient (IN) | payer MEDICAID, OTHER ==
[~2022-03-25] VITALS: Ht 165.1 cm; Wt 78.0 kg
[~2022-03-25 20:26] MED LIST changes: -ARIP5TAB37 PO; -CHOL200059 PO; +ESCI10 PO; -HYDR-4808 PO; -IBUP-2071 PO; -OLAN5TAB52 PO
[2022-03-25 22:47] LABS: BASOPHILS % (AUTO) 0.9 % (0.0-2.0); EOSINOPHILS % (AUTO) 2.2 % (1.0-6.0); HEMATOCRIT 43.3 % (36-46); HEMOGLOBIN 14.6 g/dL (12.0-16.0); LYMPHOCYTES # (AUTO) 2.5 K/uL (1.0-4.8); LYMPHOCYTES % (AUTO) 39.5 % (22.0-44.0); MEAN CORPUSCULAR HEMOGLOBIN 29.2 pg (26.0-34.0); MEAN CORPUSCULAR HGB CONC 33.7 G/dL (31.0-37.0); MEAN CORPUSCULAR VOLUME 87 fL (80-100); MONOCYTES # (AUTO) 0.3 K/uL (0.1-1.0); MONOCYTES % (AUTO) 4.7 % (2.0-9.0); NEUTROPHILS # (AUTO) 3.3 K/uL (1.8-7.7); NEUTROPHILS % (AUTO) 52.7 % (40.0-70.0); PLATELET COUNT (AUTO) 254 K/uL (150-450); RED CELL DISTRIBUTION WIDTH 13.1 % (11.5-14.5)
[2022-03-25 23:07] LABS: ANION GAP 11 mmol/L (8-16); CALCIUM, TOTAL 8.7 mg/dL (8.8-10.5); CARBON DIOXIDE 20 mmol/L (22-29); CHLORIDE 106 mmol/L (98-107); CREATININE 0.91 mg/dL (0.60-1.30); GLOMERULAR FILTR. RATE CALC > 60 mL/min (>60); GLUCOSE,RANDOM 89 mg/dL (70-110); POTASSIUM 3.5 mmol/L (3.5-5.1); SODIUM SERUM 137 mmol/L (136-145); UREA NITROGEN, BLOOD 19 mg/dL (7-18)
[2022-03-25 23:11] LABS: ALANINE AMINOTRANSFERASE 21 U/L (12-78); ALBUMIN 3.9 g/dL (3.4-5.0); ALKALINE PHOSPHATASE 112 U/L (46-116); ASPARTATE AMINOTRANSFERASE 16 U/L (15-37); BILIRUBIN,TOTAL 0.2 mg/dL (0.1-1.0); TOTAL PROTEIN, SERUM 8.2 g/dL (6.4-8.2)
[2022-03-25] MEDS ORDERED: HALOPERIDOL 5 MG TABLET PO PRN (23:30)
[2022-03-25] MEDS ORDERED: ZOLPIDEM TARTRATE 10 MG TABLET PO PRN (23:30)
[2022-03-26 00:04] LABS: APPEARANCE,URINE CLEAR (CLEAR); BILIRUBIN,URINE NEGATIVE (NEGATIVE); GLUCOSE, URINE (UA) NEGATIVE (NEGATIVE); KETONES,URINE NEGATIVE (NEGATIVE); LEUKOCYTE ESTERASE ,URINE NEGATIVE (NEGATIVE); NITRATE,URINE NEGATIVE (NEGATIVE); OCCULT BLOOD,URINE NEGATIVE (NEGATIVE); PROTEIN,URINE NEGATIVE (NEGATIVE); SPECIFIC GRAVITIY, URINE 1.023 (1.003-1.030); UROBILINOGEN,URINE <=1.0 mg/dL (<=1.0)
[2022-03-26 00:11] LABS: AMPHET/METH SCREEN,URINE NEGATIVE (NEGATIVE); BARBITURATE SCREEN, URINE NEGATIVE (NEGATIVE); BENZODIAZEPINES SCREEN,URINE NEGATIVE (NEGATIVE); CANNABINOID SCREEN,URINE NEGATIVE (NEGATIVE); COCAINE SCREEN,URINE NEGATIVE (NEGATIVE); METHADONE SCREEN, URINE NEGATIVE (NEGATIVE); OPIATE SCREEN,URINE NEGATIVE (NEGATIVE)
[2022-03-26 00:12] LABS: PHENCYCLIDINE SCREEN,URINE NEGATIVE (NEGATIVE)
[2022-03-26 02:42] LABS: COVID AG,FIA SOURCE NASOPHARYNGEAL
[2022-03-26] MEDS ORDERED: CEPH-558 PO (02:44)
[2022-03-26] MEDS ORDERED: CEPHALEXIN MONOHYDRATE 500 MG CAPSULE PO ONE (02:45)
[2022-03-26] MEDS: LORazepam 2 MG TABLET PO PRN ×2 (03:15→10:52)
[2022-03-26 04:22] VITALS: BP 118/87
[2022-03-26] MEDS ORDERED: PNEUMOCOCCAL VACCINE POLYVALENT 0.5 ML VIAL [PPSV23] IM. ONE (05:00)
[2022-03-26 08:00] VITALS: BP 108/76
[2022-03-26] MEDS: TOPIRAMATE 25 MG TABLET PO SCH (10:52)
[2022-03-26] MEDS: ESCITALOPRAM OXALATE 10 MG TABLET PO SCH (10:52)
[2022-03-26] MEDS ORDERED: MAGNESIUM HYDROXIDE SUSPENSION 30 ML UDCUP PO PRN (11:30)
[2022-03-26] MEDS ORDERED: ALBUTEROL SULFATE HFA 90 MCG/PUFF 8 GM INHALER IH PRN (11:30)
[2022-03-26] MEDS ORDERED: MAG HYDROX/AL HYDROX/SIMETH ES 30 ML SUSPENSION UDCUP PO PRN (11:30)
[2022-03-26] MEDS ORDERED: GuaiFENesin/D-METHORPHAN [SUGAR-FREE] 200-20MG/10 ML SYRUP UDCUP PO PRN (11:30)
[2022-03-26] MEDS ORDERED: PETROLATUM,WHITE 28 GM JELLY TP PRN (11:30)
[2022-03-26] MEDS ORDERED: ONDANSETRON HCL 4 MG TABLET PO PRN (11:30)
[2022-03-26] MEDS ORDERED: LOPERAMIDE HCL 2 MG CAPSULE PO PRN (11:30)
[2022-03-26] MEDS ORDERED: CloNIDine HCL 0.1 MG TABLET PO PRN (11:30)
[2022-03-26 16:35] VITALS: BP 109/79
[2022-03-26] MEDS: CloZAPine 100 MG TABLET PO SCH (20:37)
[2022-03-27 09:05] VITALS: BP 100/71
[2022-03-27] MEDS: TOPIRAMATE 25 MG TABLET PO SCH (10:14)
[2022-03-27] MEDS: ESCITALOPRAM OXALATE 10 MG TABLET PO SCH (10:14)
[2022-03-27] MEDS: NICOTINE 14 MG/24 HOUR PATCH TD PRN (12:17)
[2022-03-27] MEDS: LORazepam 2 MG TABLET PO PRN ×2 (14:31→20:37)
[2022-03-27 17:15] VITALS: BP 108/68
[2022-03-27] MEDS: CloZAPine 100 MG TABLET PO SCH (20:37)
[2022-03-28] MEDS: TOPIRAMATE 25 MG TABLET PO SCH (08:35)
[2022-03-28] MEDS: ESCITALOPRAM OXALATE 10 MG TABLET PO SCH (08:35)
[2022-03-28] MEDS: NICOTINE 14 MG/24 HOUR PATCH TD PRN (08:39)
[2022-03-28 09:47] VITALS: BP 114/78
[2022-03-28 16:00] VITALS: BP 132/75
[2022-03-28] MEDS: LORazepam 2 MG TABLET PO PRN (16:42)
[2022-03-28] MEDS: CloZAPine 100 MG TABLET PO SCH (20:07)
[2022-03-29] MEDS: LORazepam 2 MG TABLET PO PRN (03:14)
[2022-03-29 08:00] VITALS: BP 104/67
[2022-03-29] MEDS: ESCITALOPRAM OXALATE 10 MG TABLET PO SCH (09:04)
[2022-03-29] MEDS: TOPIRAMATE 25 MG TABLET PO SCH (09:04)
[2022-03-29] MEDS: NICOTINE 14 MG/24 HOUR PATCH TD PRN (09:12)
[2022-03-29 16:33] VITALS: BP 122/83
[2022-03-29] MEDS: ACETAMINOPHEN 325 MG TABLET PO PRN (16:49)
[2022-03-29] MEDS ORDERED: HYDROCODONE/ACETAMINOPHEN 5-325 MG TABLET PO ONE (19:30)
[2022-03-29 20:01] VITALS: BP 129/91
[2022-03-29] MEDS: CloZAPine 100 MG TABLET PO SCH (20:25)
[2022-03-29 23:15] LABS: APPEARANCE,URINE HAZY (CLEAR); BILIRUBIN,URINE NEGATIVE (NEGATIVE); GLUCOSE, URINE (UA) NEGATIVE (NEGATIVE); KETONES,URINE NEGATIVE (NEGATIVE); LEUKOCYTE ESTERASE ,URINE NEGATIVE (NEGATIVE); NITRATE,URINE NEGATIVE (NEGATIVE); OCCULT BLOOD,URINE NEGATIVE (NEGATIVE); PROTEIN,URINE NEGATIVE (NEGATIVE); UROBILINOGEN,URINE <=1.0 mg/dL (<=1.0)
[2022-03-30] MEDS: TOPIRAMATE 25 MG TABLET PO SCH (08:47)
[2022-03-30] MEDS: ESCITALOPRAM OXALATE 10 MG TABLET PO SCH (08:48)
[2022-03-30 10:06] VITALS: BP 103/67
[2022-03-30 13:28] VITALS: BP 120/63
[2022-03-30] MEDS: LORazepam 2 MG TABLET PO PRN ×2 (13:28→20:02)
[2022-03-30] MEDS: ACETAMINOPHEN 325 MG TABLET PO PRN ×2 (13:28→20:05)
[2022-03-30] MEDS: NICOTINE 14 MG/24 HOUR PATCH TD PRN (14:02)
[2022-03-30 16:36] VITALS: BP 105/69
[2022-03-30] MEDS: CloZAPine 100 MG TABLET PO SCH (20:03)
[2022-03-31 02:05] VITALS: BP 110/80
[2022-03-31] MEDS: ACETAMINOPHEN 325 MG TABLET PO PRN ×2 (02:12→20:06)
[2022-03-31] MEDS: LORazepam 2 MG TABLET PO PRN (02:12)
[2022-03-31 08:30] VITALS: BP 102/63
[2022-03-31] MEDS: TOPIRAMATE 25 MG TABLET PO SCH (09:03)
[2022-03-31] MEDS: ESCITALOPRAM OXALATE 10 MG TABLET PO SCH (09:03)
[2022-03-31 09:16] LABS: COVID AG,FIA SOURCE NASAL SWAB
[2022-03-31] MEDS: NICOTINE 14 MG/24 HOUR PATCH TD PRN (14:04)
[2022-03-31 16:00] VITALS: BP 109/68
[2022-03-31] MEDS: CloZAPine 100 MG TABLET PO SCH (20:04)
[2022-04-01 02:00] VITALS: BP 139/86
[2022-04-01] MEDS: LORazepam 2 MG TABLET PO PRN ×2 (02:12→17:00)
[2022-04-01 02:45] VITALS: BP 130/80
[2022-04-01 06:05] LABS: BASOPHILS % (AUTO) 1.3 % (0.0-2.0); EOSINOPHILS % (AUTO) 3.3 % (1.0-6.0); HEMATOCRIT 39.6 % (36-46); HEMOGLOBIN 13.6 g/dL (12.0-16.0); LYMPHOCYTES % (AUTO) 37.1 % (22.0-44.0); MEAN CORPUSCULAR HEMOGLOBIN 29.5 pg (26.0-34.0); MEAN CORPUSCULAR HGB CONC 34.4 G/dL (31.0-37.0); MEAN CORPUSCULAR VOLUME 86 fL (80-100); MONOCYTES # (AUTO) 0.3 K/uL (0.1-1.0); MONOCYTES % (AUTO) 5.4 % (2.0-9.0); NEUTROPHILS # (AUTO) 2.8 K/uL (1.8-7.7); NEUTROPHILS % (AUTO) 52.9 % (40.0-70.0); PLATELET COUNT (AUTO) 215 K/uL (150-450); RED BLOOD CELL COUNT(AUTO) 4.62 MIL/uL (4.00-5.20); RED CELL DISTRIBUTION WIDTH 12.5 % (11.5-14.5)
[2022-04-01] MEDS: TOPIRAMATE 25 MG TABLET PO SCH (09:10)
[2022-04-01] MEDS: ESCITALOPRAM OXALATE 10 MG TABLET PO SCH (09:10)
[2022-04-01 14:04] VITALS: BP 112/75
[2022-04-01 16:00] VITALS: BP 126/96
[2022-04-01 17:00] VITALS: BP 126/96
[2022-04-01] MEDS: CloZAPine 100 MG TABLET PO SCH (20:34)
[2022-04-02 08:47] VITALS: BP 103/66
[2022-04-02] MEDS: TOPIRAMATE 25 MG TABLET PO SCH (09:39)
[2022-04-02] MEDS: ESCITALOPRAM OXALATE 10 MG TABLET PO SCH (09:39)
[2022-04-02] MEDS: DOCUSATE SODIUM 100 MG CAPSULE PO PRN (11:02)
[2022-04-02] MEDS: LORazepam 2 MG TABLET PO PRN ×2 (11:07→20:15)
[2022-04-02 16:00] VITALS: BP 104/69
[2022-04-02] MEDS: CloZAPine 100 MG TABLET PO SCH (20:04)
[2022-04-02 20:15] VITALS: BP 121/88
[2022-04-03] MEDS: LORazepam 2 MG TABLET PO PRN ×3 (04:00→19:12)
[2022-04-03 04:28] VITALS: BP 131/77
[2022-04-03] MEDS: TOPIRAMATE 25 MG TABLET PO SCH (08:49)
[2022-04-03] MEDS: ESCITALOPRAM OXALATE 10 MG TABLET PO SCH (08:49)
[2022-04-03 09:11] VITALS: BP 107/68
[2022-04-03] MEDS: NICOTINE 14 MG/24 HOUR PATCH TD PRN (09:45)
[2022-04-03] MEDS: ACETAMINOPHEN 325 MG TABLET PO PRN (09:52)
[2022-04-03 10:18] VITALS: BP 110/64
[2022-04-03 16:00] VITALS: BP 110/76
[2022-04-03 19:12] VITALS: BP 125/88
[2022-04-03] MEDS: CloZAPine 100 MG TABLET PO SCH (21:02)
[2022-04-04 02:31] VITALS: BP 110/80
[2022-04-04] MEDS: LORazepam 2 MG TABLET PO PRN ×3 (02:31→20:11)
[2022-04-04 08:30] VITALS: BP 112/76
[2022-04-04] MEDS: ESCITALOPRAM OXALATE 10 MG TABLET PO SCH (08:48)
[2022-04-04] MEDS: TOPIRAMATE 25 MG TABLET PO SCH (08:48)
[2022-04-04] MEDS: DOCUSATE SODIUM 100 MG CAPSULE PO PRN (13:25)
[2022-04-04 16:56] VITALS: BP 97/63
[2022-04-04] MEDS: CloZAPine 100 MG TABLET PO SCH (20:11)
[2022-04-05 01:20] VITALS: BP 115/85
[2022-04-05] MEDS: LORazepam 2 MG TABLET PO PRN (01:23)
[2022-04-05 08:00] VITALS: BP 122/68
[2022-04-05] MEDS ORDERED: TOPI25 PO (09:06)
[2022-04-05] MEDS ORDERED: CLOZ100T32 PO (09:06)
[2022-04-05] MEDS ORDERED: ESCI10 PO (09:07)
[2022-04-05] MEDS: TOPIRAMATE 25 MG TABLET PO SCH (09:22)
[2022-04-05] MEDS: ESCITALOPRAM OXALATE 10 MG TABLET PO SCH (09:23)
[2022-04-05 16:44] VITALS: BP 105/62
== END 2022-04-05 13:20 | disposition home or self-care (01) | DRG 750 ==
LOC: EMS 20:26 → 3EI 03-26 01:52
PROVIDERS: ADMIT Psychiatry & Neurology Psychiatry; ATTEND Psychiatry & Neurology Psychiatry
DX: F25.1 Schizoaffective disorder, depressive type (principal); R45.851 Suicidal ideations; E11.9 Type 2 diabetes mellitus without complications; F31.9 Bipolar disorder, unspecified; I10 Essential (primary) hypertension; J45.909 Unspecified asthma, uncomplicated; F41.9 Anxiety disorder, unspecified; Z20.822 Contact with and (suspected) exposure to COVID-19; F11.20 Opioid dependence, uncomplicated; Z88.0 Allergy status to penicillin; Z88.5 Allergy status to narcotic agent; Z79.899 Other long term (current) drug therapy; Z59.00 Homelessness unspecified; Z87.891 Personal history of nicotine dependence; Z91.51 Personal history of suicidal behavior; Z88.8 Allergy status to other drugs, medicaments and biological substances
CPT/HCPCS: 80053; 81003; 83036; 84703; 85025; 87081; 99285; G0480